=== PATIENT | male | born 1970 | race Caucasian/White ===

== ENCOUNTER → 2016-04-19 | Outpatient (CLI) | payer BC, MEDICAID ==
--- NOTE | 2016-04-19 19:47 | CT ---
EXAMINATION TYPE: CT chest wo con DATE OF EXAM: 04/19/2016 7:33 PM COMPARISON: NONE HISTORY: Short of breath CT DLP: mGycm Automated exposure control for dose reduction was used. FINDINGS: The lungs are clear of infiltrate. There is no pleural effusion. There is no pericardial effusion. Th ere are no hilar masses. There is no mediastinal adenopathy. Thoracic spine appears intact. IMPRESSION: NEGATIVE CT SCAN OF THE CHEST.
== END | disposition home or self-care (01) ==
LOC: RADCTMAIN 19:13
PROVIDERS: ATTEND Internal Medicine Sleep Medicine
DX: J84.89 Other specified interstitial pulmonary diseases (principal)
CPT/HCPCS: 71250

== ENCOUNTER → 2020-04-17 | Outpatient (CLI) | payer OTHER ==
[2020-04-17 08:26] LABS: Appearance,Urine Clear (Clear); Bilirubin,Urine Negative (Negative); Blood,Urine Small (Negative); Color,Urine Yellow; Glucose,Urine (UA) Negative (Negative); Ketones,Urine Negative (Negative); Leukocyte Esterase,Urine Negative (Negative); Mucus,Urine Few /hpf; Nitrite,Urine Negative (Negative); PH, Urine 5.5 (5.0-8.0); Protein,Urine 1+ (Negative); RBC,Urine 1 /hpf (0-5); Specific Gravity,Urine 1.028 (1.001-1.035); Urobilinogen,Urine <2.0 mg/dL (<2.0); WBC,Urine 1 /hpf (0-5)
[2020-04-17 15:14] LABS: HCT 48.6 % (39.6-50.0); HGB 15.4 g/dL (13.0-17.0); MCH 28.5 pg (27.0-32.0); MCHC 31.7 g/dL (32.0-37.0); MCV 89.8 fL (80.0-97.0); Mean Platelet Volume 10.2 fL (9.5-12.2); Platelet Count 343 X 10*3/uL (140-440); RBC 5.41 X 10*6/uL (4.40-5.60); RDW 13.3 % (11.5-14.5); WBC 7.36 X 10*3/uL (4.50-10.00)
[2020-04-17 18:58] LABS: Hemoglobin A1C 6.7 % (4.0-6.0)
[2020-04-18 01:59] LABS: African American GFR (CKD) 115.8 (60.0-200.0); Anion Gap 12.6 mmol/L (4.00-12.00); Calcium 9.8 mg/dL (8.7-10.3); Carbon Dioxide 26.4 mmol/L (21.6-31.8); Chol/HDL Ratio 4.41; Non-African American GFR(CKD) 99.9 (60.0-200.0); Potassium 4.2 mmol/L (3.5-5.5)
[2020-04-18 02:07] LABS: Prostate Specific Antigen 0.7 ng/mL (0.0-2.5)
== END | disposition home or self-care (01) ==
LOC: LABWHC1 07:03
PROVIDERS: ATTEND Family Medicine
DX: Z00.00 Encounter for general adult medical examination without abnormal findings (principal); E66.9 Obesity, unspecified
CPT/HCPCS: 36415; 80048; 80061; 81001; 83036; 84153; 84443; 84450; 84460; 85027

== ENCOUNTER 2023-02-11 09:39 | Day surgery (SDC) | payer BC, OTHER ==
[2023-02-08 15:48] VITALS: BMI 34.2
[~2023-02-11 09:39] MED LIST: LACTATED RINGERS 1,000 ML IV SCH
[2023-02-11] MEDS ORDERED: LACTATED RINGERS 1,000 ML IV ONE (10:00)
[2023-02-11 10:16] LABS: Glucose,Whole Blood 134 mg/dL (70-110)
[2023-02-11 10:20] VITALS: RESP 16; TEMP 97.6
[2023-02-11] MEDS ORDERED: PROPOFOL 10 MG/ML 20 ML VIAL IV ONE (10:49)
--- NOTE | 2023-02-11 11:01 | P.PCN ---
Date of Procedure: 02/11/23 Procedure(s) Performed: BRIEF HISTORY: Patient is a 52-year-old pleasant white male scheduled for an elective colonoscopy as a part of screening for colon cancer PROCEDURE PERFORMED: Colonoscopy. PREOPERATIVE DIAGNOSIS: Screening for colon cancer.. IV sedation per Anesthesia. PROCEDURE: After informed consent was obtained, the patient, was brought into the endoscopy unit. IV sedation was administered by Anesthesia under continuous monitoring. Digital rectal examination was normal. Initially the Olympus CF-160 flexible video colonoscope was then inserted in the rectum, gradually advanced into the cecum without any difficulty. Careful examination was performed as the scope was gradually being withdrawn. Ileocecal valve and the appendiceal orifice were visualized and appeared normal. Prep was excellent. Mucosa of the cecum, ascending colon, transverse colon, descending colon, sigmoid colon, and rectum appeared normal. Scattered sigmoid diverticulosis Retroflexion was performed in the rectum and no lesions were seen. The patient tolerated the procedure well. IMPRESSION: Normal-appearing colon from rectum to cecum with no evidence of colorectal neoplasia . Scattered sigmoid diverticulosis. RECOMMENDATIONS: Findings of this examination were discussed with the patient well as his family. He was advised to have a repeat screening colonoscopy in 10 years..
[2023-02-11 11:10] VITALS: BP 113/49; PULSE 65
== END 2023-02-11 11:35 | disposition home or self-care (01) ==
LOC: ORWHC2ENDO 09:39
PROVIDERS: ATTEND Internal Medicine Gastroenterology
DX: Z12.11 Encounter for screening for malignant neoplasm of colon (principal); K57.30 Diverticulosis of large intestine without perforation or abscess without bleeding
CPT/HCPCS: 45378; J2704